=== PATIENT | female | born 1945 | race Hispanic/Latino ===

== ENCOUNTER → 2017-10-21 | Outpatient (CLI) | payer OTHER ==
[~2017-10-21] MED LIST: AEC81 PO; ALEN70TA47 PO; CITA20SO PO; CLOP75TA14 PO; DOXY100C2 PO; OMEP20TA25 PO; SIMV20TA6 PO; TOPI25TA48 PO
== END | disposition home or self-care (01) ==
LOC: RAH 10:25
PROVIDERS: ATTEND Internal Medicine
DX: I82.401 Acute embolism and thrombosis of unspecified deep veins of right lower extremity (principal); R60.0 Localized edema
CPT/HCPCS: 93971

== ENCOUNTER → 2018-01-12 | Outpatient (CLI) | payer OTHER ==
[2018-01-12 10:28] LABS: BASOPHILS % (AUTO) 0.5 % (0.0-5.0); EOSINOPHILS % (AUTO) 3.8 % (0.0-8.0); HEMATOCRIT 43.3 % (36-48); LYMPHOCYTES % (AUTO) 22.6 % (21.0-51.0); MEAN CORPUSCULAR HGB CONC 34.1 g/dL (32.0-36.0); MEAN CORPUSCULAR VOLUME 85.2 fL (79-99); MONOCYTES % (AUTO) 6.3 % (3.0-13.0); NEUTROPHILS % (AUTO) 66.8 % (40.0-77.0); PLATELET COUNT (AUTO) 271 K/uL (130-400); RED BLOOD CELL COUNT(AUTO) 5.08 MIL/uL (4.00-5.50); RED CELL DISTRIBUTION WIDTH 14.1 % (11.0-15.5); WHITE BLOOD COUNT (AUTO) 7.6 K/uL (4.8-10.8)
[2018-01-12 10:50] LABS: HEMOGLOBIN A1C 5.9 % (4.0-6.0)
[2018-01-12 10:52] LABS: ALBUMIN 3.4 g/dL (3.5-5.0); BILIRUBIN,TOTAL 0.4 mg/dL (0.2-1.0); CREATININE 1.1 mg/dL (0.5-1.5); THYROID STIMULATING HORMONE 2.49 uIU/mL (0.36-3.74); TOTAL PROTEIN, SERUM 7.5 g/dL (6.0-8.3)
== END | disposition home or self-care (01) ==
LOC: RAH 09:54
PROVIDERS: ATTEND Internal Medicine
DX: M17.11 Unilateral primary osteoarthritis, right knee (principal); R73.01 Impaired fasting glucose; E78.4 Other hyperlipidemia
CPT/HCPCS: 36415; 73562; 80053; 80061; 83036; 84439; 84443; 84481; 85025

== ENCOUNTER → 2019-04-14 | Outpatient (CLI) | payer OTHER ==
[~2019-04-14] MED LIST changes: +ALEN70TA10 PO; -ALEN70TA47 PO; -CITA20SO PO; +CITA20SO2 PO
== END | disposition home or self-care (01) ==
LOC: SHCH 10:37
PROVIDERS: ATTEND Internal Medicine Cardiovascular Disease
DX: I31.3 Pericardial effusion (noninflammatory) (principal)
CPT/HCPCS: 93306

== ENCOUNTER → 2019-05-14 | Outpatient (CLI) | payer OTHER ==
--- NOTE | 2019-04-26 12:52 | NUR ---
PT WAS A NO SHOW FOR THIS DATE OF SERVICE
[~2019-05-14] VITALS: Ht 157.5 cm; Wt 83.5 kg
[~2019-05-14] MED LIST changes: +REGADENOSON 0.4 MG/5 ML PF SYG IVP SCH; +SIMV-43 PO; -SIMV20TA6 PO
== END | disposition home or self-care (01) ==
LOC: SHCH 08:04
PROVIDERS: ATTEND Internal Medicine Cardiovascular Disease
DX: R55 Syncope and collapse (principal)
CPT/HCPCS: 78452; 93017; 96374; A9500 ×2; J2785

== ENCOUNTER → 2019-06-03 | Outpatient (CLI) | payer OTHER ==
[~2019-06-03] MED LIST changes: -REGADENOSON 0.4 MG/5 ML PF SYG IVP SCH
--- NOTE | 2019-06-03 10:30 | NUR ---
MBSS COMPLETED. -S/S OF ASPIRATION. RECOMMEND MECHANICAL SOFT/GROUND, THIN LIQUIDS, PILLS WHOLE WITH LIQUIDS. RECOMMENDATIONS: 1. GI CONSULT 2. SKILLED SPEECH THERAPY 2-3XWK TARGETING OROPHARYNGEAL DYSPHAGIA. Addendum: 06/03/19 at 1402 by YANICK LIN, SPT ST Amended: Links added.
== END | disposition home or self-care (01) ==
LOC: RAH 08:29
PROVIDERS: ATTEND Internal Medicine
DX: R13.13 Dysphagia, pharyngeal phase (principal); G81.91 Hemiplegia, unspecified affecting right dominant side; G45.9 Transient cerebral ischemic attack, unspecified; Z90.710 Acquired absence of both cervix and uterus; Z86.73 Personal history of transient ischemic attack (TIA), and cerebral infarction without residual deficits
CPT/HCPCS: 74230; 92611

== ENCOUNTER → 2019-10-13 | Outpatient (CLI) | payer OTHER | END | disposition home or self-care (01) | LOC: RAH 10:26 | PROVIDERS: ATTEND Internal Medicine Cardiovascular Disease | DX: Z13.6 Encounter for screening for cardiovascular disorders (principal) | CPT/HCPCS: 75571 ==

== ENCOUNTER → 2020-04-27 | Outpatient (CLI) | payer OTHER ==
[~2020-04-27] MED LIST changes: -ALEN70TA10 PO; +ALEN70TA69 PO
== END | disposition home or self-care (01) ==
LOC: RAH 11:45
PROVIDERS: ATTEND Internal Medicine
DX: M17.11 Unilateral primary osteoarthritis, right knee (principal); F41.1 Generalized anxiety disorder; M25.561 Pain in right knee
CPT/HCPCS: 73564

== ENCOUNTER → 2023-04-22 | Outpatient (CLI) | payer OTHER ==
[~2023-04-22] MED LIST changes: -ALEN70TA69 PO; +ALEN70TA80 PO; +CLOP-31 PO; -CLOP75TA14 PO; -DOXY100C2 PO; +DOXY100C5 PO; +OMEP20TA20 PO; -OMEP20TA25 PO
[2023-04-22 12:29] LABS: CREATININE 1.1 mg/dL (0.5-1.5); POTASSIUM 4.3 mmol/L (3.5-5.1)
== END | disposition home or self-care (01) ==
LOC: LAB 09:43
PROVIDERS: ATTEND Student in an Organized Health Care Education/Training Program
DX: R07.9 Chest pain, unspecified (principal)
CPT/HCPCS: 36415; 80048

== ENCOUNTER → 2023-05-09 | Outpatient (CLI) | payer OTHER ==
[~2023-05-09] MED LIST changes: +IOHEXOL 350 MG/ML 100ML INFUS..BTL IV ONE
== END | disposition home or self-care (01) ==
LOC: RAH 08:57
PROVIDERS: ATTEND Student in an Organized Health Care Education/Training Program
DX: I51.7 Cardiomegaly (principal); R07.9 Chest pain, unspecified; J84.10 Pulmonary fibrosis, unspecified; K44.9 Diaphragmatic hernia without obstruction or gangrene; R91.8 Other nonspecific abnormal finding of lung field; R06.02 Shortness of breath; M47.815 Spondylosis without myelopathy or radiculopathy, thoracolumbar region
CPT/HCPCS: 75574; Q9967

== ENCOUNTER → 2023-05-27 | Outpatient (CLI) | payer OTHER ==
[~2023-05-27] MED LIST changes: -IOHEXOL 350 MG/ML 100ML INFUS..BTL IV ONE
== END | disposition home or self-care (01) ==
LOC: SHCH 14:20
PROVIDERS: ATTEND Student in an Organized Health Care Education/Training Program
DX: I11.9 Hypertensive heart disease without heart failure (principal); R07.9 Chest pain, unspecified; R06.02 Shortness of breath; E78.5 Hyperlipidemia, unspecified
CPT/HCPCS: 93306

== ENCOUNTER → 2024-04-12 | Outpatient (CLI) | payer OTHER | END | disposition home or self-care (01) | LOC: RAH 13:08 | PROVIDERS: ATTEND Internal Medicine | DX: J98.4 Other disorders of lung (principal); R06.09 Other forms of dyspnea | CPT/HCPCS: 71250 ==

== ENCOUNTER 2024-11-04 10:36 | Observation (INO) | payer OTHER ==
[~2024-11-04] VITALS: Ht 157.5 cm; Wt 80.1 kg
[~2024-11-04 10:36] MED LIST changes: +TOPI-257 PO; -TOPI25TA48 PO
--- NOTE | 2024-11-04 11:31 | ERN ---
General Chief Complaint: Abdominal Pain Stated Complaint: DARK STOOL,ABDOMINAL PAIN,NAUSEA,VOMITING Time Seen by MD: 10:45 Source: patient History of Present Illness Initial Comments Patient is a 79-year-old female coming in with complaints of diarrhea. Patient states that she has had diarrhea for four weeks progressively getting worse two weeks ago she noticed the diarrheal episodes accompanied with dark color of stools as well. She was seen by her primary care physician and sent in for further evaluation due to the concerns of the black stool presenting with the diarrhea. Allergies: Coded Allergies: No Known Allergies (Verified Allergy, 01/28/13) Home Meds Active Scripts Doxycycline Hyclate (Doxycycline Hyclate) 100 Mg Capsule, 100 MG PO BID, #10 CAP 0 Refills Prov:Shirley GALARZA II, MD 02/12/16 Reported Medications Alendronate Sodium (Alendronate Sodium) 70 Mg Tablet, 70 MG PO WEEKLY(FRI), TAB 02/12/16 Omeprazole (Omeprazole) 20 Mg Tablet.dr, 20 MG PO DAILY, TAB 02/12/16 Topiramate (Topiramate) 25 Mg Tablet, 25 MG PO DAILY, TAB 02/12/16 Citalopram Hydrobromide (Citalopram HBr) 20 Mg/10 Ml Solution, 20 MG PO DAILY, ML 02/12/16 Simvastatin (Simvastatin) 20 Mg Tablet, 20 MG PO HS, TAB 02/12/16 Clopidogrel Bisulfate (Plavix) 75 Mg Tablet, 75 MG PO DAILY, TAB 02/12/16 Aspirin (ASPIRIN 81 MG ECTAB) 81 Mg Ectab, 81 MG PO DAILY, TAB.EC 02/12/16 Past Medical History Past Medical History: High Cholesterol, Hypertension Past Surgical History: Other Results Laboratory and Microbiology Lab and Micro Result Laboratory Tests Test 11/04/24 11:26 White Blood Count 5.9 K/uL (4.8-10.8) Red Blood Count 5.31 MIL/uL (4.00-5.50) Hemoglobin 14.3 g/dL (12.0-16.0) Hematocrit 45.9 % (36-48) Mean Corpuscular Volume 86.4 fL (79-99) Mean Corpuscular Hemoglobin 26.9 pg (27.0-33.0) L Mean Corpuscular Hemoglobin Concent 31.2 g/dL (32.0-36.0) L Red Cell Distribution Width 15.4 % (11.0-15.5) Platelet Count 224 K/uL (130-400) Mean Platelet Volume 9.3 fL (7.5-10.5) Immature Granulocyte % (Auto) 0.3 % (0-1) Neutrophils (%) (Auto) 56.2 % (40.0-77.0) Lymphocytes (%) (Auto) 31.1 % (21.0-51.0) Monocytes (%) (Auto) 6.5 % (3.0-13.0) Eosinophils (%) (Auto) 5.4 % (0.0-8.0) Basophils (%) (Auto) 0.5 % (0.0-5.0) Neutrophils # (Auto) 3.3 K/uL (1.8-7.7) Lymphocytes # (Auto) 1.8 K/uL (1.0-4.8) Monocytes # (Auto) 0.4 K/uL (0.1-1.0) Eosinophils # (Auto) 0.32 K/uL (0.00-0.70) Basophils # (Auto) 0.03 K/uL (0.00-0.20) Absolute Immature Granulocyte (auto 0.02 K/uL (0-1) Nucleated Red Blood Cells 0.0 % (0.0-0.19) Sodium Level 136 mmol/L (136-145) Potassium Level 4.1 mmol/L (3.5-5.1) Chloride Level 104 mmol/L (101-111) Carbon Dioxide Level 25 mmol/L (21-32) Blood Urea Nitrogen 5 mg/dL (7-18) L Creatinine 1.0 mg/dL (0.5-1.0) Glomerular Filtration Rate Calc 57 mL/min (>90) Random Glucose 89 mg/dL (70-105) Total Calcium 8.5 mg/dL (8.5-10.1) Total Bilirubin 0.6 mg/dL (0.2-1.0) Aspartate Amino Transf (AST/SGOT) 43 U/L (10-37) H Alanine Aminotransferase (ALT/SGPT) 29 U/L (12-78) Alkaline Phosphatase 120 U/L (50-136) Total Creatine Kinase 106 U/L (21-232) Troponin I High Sensitivity 7 ng/L (4-50) Total Protein 7.9 g/dL (6.0-8.3) Albumin 3.2 g/dL (3.5-5.0) L Lipase 41 U/L (16-77) Labs Reviewed?: Yes EKG/XRAY/US/CT/MRI EKG Comment 11/04/2024 time 10:55 a.m. Ventricular rate 52 Sinus rhythm [place] [address] wave elevation or depression CT Scan Comment [facility] [address] [place] [address] IMAGING REPORT Signed PATIENT: LEI KHOURY MR#: [id number] : 1945 SEX: F AGE: 79 LOCATION: [facility] ORDER 1050 STATUS: REG ER REPORT#: [id number] SERVICE 1049 REASON: ABD PAIN ORDERING PHYSICIAN: DEANDRE SNOWDEN MD PROCEDURE: ABD PEL WO - CT ABDOMEN/PELVIS W/O CONTRAST CT ABDOMEN/PELVIS W/O CONTRAST HISTORY: Abdominal pain COMPARISON: None TECHNIQUE: Multiple sequential axial images of the abdomen and pelvis were obtained from the dome of the diaphragm through symphysis pubis. Patient was not given contrast through intravenous route. Oral contrast was not given. FINDINGS: No pleural effusion is seen bilaterally. There are interstitial fibrosis with bronchiectasis. Degenerative changes of the thoracolumbar spine are present. The heart is borderline enlarged. Gallbladder is distended. The liver, spleen, adrenal glands and pancreas are unremarkable. There is no evidence of hydronephrosis bilaterally. No evidence of renal stone is seen. Fecal material is seen in the colon. There is diverticulosis. There are normal size retroperitoneal and mesenteric lymph nodes. No ascites is seen. No CT evidence of acute appendicitis is seen. Uterus is not seen. Pelvic sidewalls are symmetric bilaterally. Bladder is poorly distended. IMPRESSION: 1. Diverticulosis. Fecal material is seen in the colon. Mild bilateral lower lung pulmonary infiltrates. There are interstitial fibrosis with bronchiectasis. CT was performed with one or more following dose reduction techniques: automated exposure control, adjustment of the mA and kv according to patient's size, or use of a iterative reconstruction technique. DICTATED BY: MARIANO QUINTERO MD DATE: 11/04/241223 ELECTRONICALLY SIGNED BY: MARIANO QUINTERO MD DATE: 11/04/248 [facility] MDM: Differential diagnosis: Abdominal pain, gastroenteritis, diarrhea, GI bleed, diverticulosis Rationale: Tests considered and ordered secondary to shared decision making include: Previous outside records reviewed: Old ER visits. Risk of complication and/or morbidity or mortality of patient management: None Patient is a 79-year-old female coming in to be evaluated for abdominal discomfort. Patient states that she was had diarrhea and black stools. Patient was sent by PCP for further evaluation. Patient will be admitted under the care of hospitalist group for ongoing management. ED Course Orders Procedure Category Date Status Time Cbc With Differential LAB 11/04/24 Complete 10:49 Comprehensive LAB 11/04/24 Complete Metabolic Panel 10:49 Troponin I High LAB 11/04/24 Complete Sensitivity 10:49 Urinalysis Profile LAB 11/04/24 In Process 10:49 12 Lead Ekg Tracing- EKG 11/04/24 Complete Technical 10:49 Lactated Ringers PHA 11/04/24 Complete 1000ml (Lactated 11:00 Ondansetron 4mg Inj PHA 11/04/24 Complete (Zofran 4mg Inj) 11:00 Pantoprazole 40mg Inj PHA 11/04/24 Complete (Protonix 40mg Inj 11:00 Creatine Kinase, Total LAB 11/04/24 Complete 10:49 Ct Abdomen/Pelvis W/O CT 11/04/24 Resulted Contrast 10:49 Lipase LAB 11/04/24 Complete 10:49 Occult Blood Stool LAB 11/04/24 Logged Single Only 10:49 Current Medications Medications (Trade) Dose Ordered Sig/Qing Route PRN Reason Start Time Stop Time Status Last Admin Dose Admin Lactated Ringer's 1,000 ml @ 0 mls/hr ONCE ONCE IV 11/04/24 11:00 11/04/24 11:01 DC 11/04/24 11:51 Ondansetron HCl (zoFRAN 4MG INJ) 4 mg ONCE ONCE IVP 11/04/24 11:00 11/04/24 11:01 DC 11/04/24 11:51 Pantoprazole Sodium (PROTonix 40MG INJ) 40 mg ONCE ONCE IVP 11/04/24 11:00 11/04/24 11:01 DC 11/04/24 11:51 Vital Signs Date Time Temp Pulse Resp B/P (MAP) Pulse Ox O2 Delivery O2 Flow Rate FiO2 11/04/24 11:31 52 18 117/46 98 Room Air* 0 21 11/04/24 10:40 97.5 61 20 123/59 96 0 DX & DISP Disposition: Inpatient Decision to Admit Time: 13:03 Departure Impression: Primary Impression: GI bleed Additional Impressions: Diarrhea, Diverticulosis Condition: Stable Referrals: LIDIA VELA MD (PCP) DEANDRE SNOWDEN MD Nov 04, 2024 11:31
[2024-11-04 11:37] LABS: BASOPHILS # (AUTO) 0.03 K/uL (0.00-0.20); BASOPHILS % (AUTO) 0.5 % (0.0-5.0); EOSINOPHILS # (AUTO) 0.32 K/uL (0.00-0.70); EOSINOPHILS % (AUTO) 5.4 % (0.0-8.0); HEMATOCRIT 45.9 % (36-48); IMMATURE GRANULOCYTE ABSOLUTE 0.02 K/uL (0-1); LYMPHOCYTES # (AUTO) 1.8 K/uL (1.0-4.8); LYMPHOCYTES % (AUTO) 31.1 % (21.0-51.0); MEAN CORPUSCULAR HEMOGLOBIN 26.9 pg (27.0-33.0); MEAN CORPUSCULAR HGB CONC 31.2 g/dL (32.0-36.0); MEAN CORPUSCULAR VOLUME 86.4 fL (79-99); MONOCYTES # (AUTO) 0.4 K/uL (0.1-1.0); MONOCYTES % (AUTO) 6.5 % (3.0-13.0); NEUTROPHILS # (AUTO) 3.3 K/uL (1.8-7.7); NEUTROPHILS % (AUTO) 56.2 % (40.0-77.0); PLATELET COUNT (AUTO) 224 K/uL (130-400); RED BLOOD CELL COUNT(AUTO) 5.31 MIL/uL (4.00-5.50); RED CELL DISTRIBUTION WIDTH 15.4 % (11.0-15.5); WHITE BLOOD COUNT (AUTO) 5.9 K/uL (4.8-10.8)
[2024-11-04 11:46] LABS: POTASSIUM 4.1 mmol/L (3.5-5.1)
[2024-11-04 11:50] LABS: ALBUMIN 3.2 g/dL (3.5-5.0); BILIRUBIN,TOTAL 0.6 mg/dL (0.2-1.0); TOTAL PROTEIN, SERUM 7.9 g/dL (6.0-8.3)
[2024-11-04] MEDS: LACTATED RINGERS 1000ML 1,000 ML IV ONE (11:51)
[2024-11-04] MEDS: ondanSETRON 4MG INJ IVP ONE (11:51)
[2024-11-04] MEDS: PANTOPrazole 40 MG/VIAL IVP ONE (11:51)
--- NOTE | 2024-11-04 12:00 | NUR ---
PT LEFT FOR CT SCAN
--- NOTE | 2024-11-04 12:28 | HMCIMG ---
CT ABDOMEN/PELVIS W/O CONTRAST HISTORY: Abdominal pain COMPARISON: None TECHNIQUE: Multiple sequential axial images of the abdomen and pelvis were obtained from the dome of the diaphragm through symphysis pubis. Patient was not given contrast through intravenous route. Oral contrast was not given. FINDINGS: No pleural effusion is seen bilaterally. There are interstitial fibrosis with bronchiectasis. Degenerative changes of the thoracolumbar spine are present. The heart is borderline enlarged. Gallbladder is distended. The liver, spleen, adrenal glands and pancreas are unremarkable. There is no evidence of hydronephrosis bilaterally. No evidence of renal stone is seen. Fecal material is seen in the colon. There is diverticulosis. There are normal size retroperitoneal and mesenteric lymph nodes. No ascites is seen. No CT evidence of acute appendicitis is seen. Uterus is not seen. Pelvic sidewalls are symmetric bilaterally. Bladder is poorly distended. IMPRESSION: 1. Diverticulosis. Fecal material is seen in the colon. Mild bilateral lower lung pulmonary infiltrates. There are interstitial fibrosis with bronchiectasis. CT was performed with one or more following dose reduction techniques: automated exposure control, adjustment of the mA and kv according to patient's size, or use of a iterative reconstruction technique.
--- NOTE | 2024-11-04 12:52 | EKG ---
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
[2024-11-04 13:06] LABS: APPEARANCE,URINE CLOUDY (CLEAR); BILIRUBIN,URINE NEGATIVE (NEGATIVE); COLOR,URINE YELLOW (YELLOW); GLUCOSE, URINE (UA) NEGATIVE (NEGATIVE); KETONES,URINE NEGATIVE (NEGATIVE); LEUKOCYTE ESTERASE ,URINE 250 Leu/uL (NEGATIVE); NITRATE,URINE NEGATIVE (NEGATIVE); PROTEIN,URINE NEGATIVE (NEGATIVE); UROBILINOGEN,URINE 0.2 mg/dL (0.2-1.0)
[2024-11-04 13:09] LABS: ADD UA MICROSCOPIC YES
[2024-11-04 13:27] LABS: BACTERIA,URINE RARE /HPF (None Seen); MUCUS,URINE FEW LPF (None Seen); SQUAMOUS EPITHELIAL CELL,UR MANY /HPF (0-2)
[2024-11-04] MEDS ORDERED: ALBUTEROL 0.042% 1.25MG/3ML IH PRN (13:30)
[2024-11-04] MEDS ORDERED: acetaMINOPHEN 500 MG TABLET PO PRN (13:30)
[2024-11-04] MEDS ORDERED: OMEP20CA12 PO (14:03)
[2024-11-04] MEDS ORDERED: ATOR40TA71 PO (14:03)
[2024-11-04] MEDS ORDERED: CITA-107 PO (14:03)
[2024-11-04] MEDS ORDERED: TOPI-258 PO (14:03)
[2024-11-04] MEDS: cefTRIAXone 1G VIAL IVPB SCH (14:07)
[2024-11-04] MEDS: PANTOPrazole 40MG INJ 80 MG in 0.9%NACL 100ML 100 ML IVP SCH (14:08)
[2024-11-04] MEDS: 0.9%NACL 1000ML 1,000 ML IV SCH (14:08)
--- NOTE | 2024-11-04 14:13 | HP ---
[facility] HISTORY AND PHYSICAL Date of Service: Nov 04, 2024 Time of Service: 14:12 HISTORY OF PRESENT ILLNESS: 79-year-old female with past medical history of hyperlipidemia, pulmonary fibrosis who presents to the hospital secondary to diarrhea and melena. The patient has stage for the past one month she has been having loose stools at home. She has been having around 3-4 episodes. She was also noted black stools which started yesterday. She denies any nausea, vomiting. Also complains of generalized abdominal pain. She has a history of pulmonary fibrosis and is being followed outpatient by Dr. Carolina. The he had any fever, chills, chest pain, dysuria. She does get short of breath at rest and with exertion. She denied any hematochezia, hematemesis. Denied any sick contacts, recent travel. Secondary to non improving symptoms. Patient thereafter came to the hospital for further evaluation. Denies being on iron or Pepto-Bismol at home. Labs in the ED were notable for white count of 5.9, hemoglobin was 14.3, platelet count was 224 K, sodium was 136, potassium 4.1, creatinine was 1.0. Patient underwent CT abdomen pelvis which showed diverticulosis. She had mild bilateral lower pulmonary infiltrates concerning for interstitial fibrosis and bronchiectasis REVIEW OF SYSTEMS CONSTITUTIONAL: Denies fevers, chills, or night sweats. No unintentional weight loss reported. NEUROLOGICAL: Denies headache, amaurosis fugax, motor weakness, sensory deficit, vertigo/spinning sensation, gait abnormalities, or tremors. ENT: No hearing loss, otalgia, otorrhea, rhinitis, rhinorrhea, hoarseness, or sore throat. CARDIOVASCULAR: Denies any exertional angina, dyspnea on exertion, orthopnea, paroxysmal nocturnal dyspnea, palpitations, life-threatening arrhythmias, claudication. PULMONARY: Denies any shortness of breath, cough, phlegm/sputum, hemoptysis, pleuritic chest pain. SLEEP: Denies morning headaches, daytime somnolence or napping. Denies difficulty falling asleep, staying asleep, waking from sleep. Denies knowledge of snoring. GASTROINTESTINAL: Positive for melena, abdominal pain, diarrhea. Denied any nausea, vomiting GENITOURINARY: Denies frequency, urgency, nocturia, hematuria or incontinence (Storage/Irritative symptoms.) Low urinary stream, straining to void, urinary intermittency or hesitancy, splitting of the voiding stream, terminal dribbling. ENDOCRINOLOGIC: Denies polyuria, polydipsia, polyphagia or heat/cold intolerances. HEMATOLOGIC: Denies thrombophilia/previous clots, or coagulopathy/bleeding disorders. ONCOLOGIC: Denies personal history of malignancy. DERMATOLOGIC: Denies rashes or pruritus. PSYCHIATRIC: Denies any suicidal or homicidal ideation. Denies hallucinations. PAST MEDICAL HISTORY: hyperlipidemia, pulmonary fibrosis PAST SURGICAL HISTORY: Denied any surgical history PAST SOCIAL HISTORY: Denied any smoking, alcohol, drug use FAMILY HISTORY: Denied any pertinent family history Coded Allergies: No Known Allergies (Verified Allergy, 01/28/13) PHYSICAL EXAM GENERAL APPEARANCE: The patient is awake, alert, and oriented, in no acute cardiopulmonary distress. NEUROLOGICAL: Cranial nerves II-XII grossly intact. Motor is 5/5 in bilateral upper and lower extremities proximal to distal. No sensory deficits. HEENT: Face is symmetric. Pupils are equal and reactive. Extraocular movements are intact. NECK: Supple. No JVD. No thyromegaly. No submental, submandibular, pre- /postauricular, occipital or supraclavicular lymphadenopathy. CHEST: Normal chest expansion. No Telemetry. LUNGS: crackles present bilaterally CARDIOVASCULAR: Regular. S1 and S2 normal. No appreciable rubs, murmurs or gallops. ABDOMEN: Soft. Patient is tenderness to palpation which is located and right lower quadrant and left lower quadrant. No guarding, no rebound present. : Deferred. No [place]. EXTREMITIES: Non-edematous and not cyanotic. No clubbing. Good capillary refill. SKIN: No skin breakdown. Vital Sign (Last 24 Hours) 11/04/24 11/04/24 10:40 11:31 Temp 97.5 Pulse 52 Resp 18 B/P (MAP) 117/46 Pulse Ox 98 O2 Delivery Room Air* O2 Flow Rate 0 FiO2 21 LABS: Laboratory: Test 11/04/24 13:42 11/04/24 12:51 11/04/24 11:26 Range/Units Stool Occult Blood NEGATIVE NEGATIVE Urine Color YELLOW YELLOW Urine Appearance CLOUDY H CLEAR Urine pH 6.0 5.0-8.0 Urine Specific [place] 1.016 1.001-1.031 Urine Protein NEGATIVE NEGATIVE mg/dL Urine Glucose (UA) NEGATIVE NEGATIVE mg/dL Urine Ketones NEGATIVE NEGATIVE mg/dL Urine Occult Blood +- (TRACE) H NEGATIVE Urine Nitrate NEGATIVE NEGATIVE Urine Bilirubin NEGATIVE NEGATIVE mg/dL Urine Urobilinogen 0.2 0.2-1.0 mg/dL Urine Leukocyte Esterase 250 H NEGATIVE Lisha/uL Urine RBC 2-5 H 0-1 /HPF Urine WBC 2-5 H 0-1 /HPF Urine Squamous Epithelial Cells MANY 0-2 /HPF Urine Bacteria RARE None Seen /HPF White Blood Count 5.9 4.8-10.8 K/uL Red Blood Count 5.31 4.00-5.50 MIL/uL Hemoglobin 14.3 12.0-16.0 g/dL Hematocrit 45.9 36-48 % Mean Corpuscular Volume 86.4 79-99 fL Mean Corpuscular Hemoglobin 26.9 L 27.0-33.0 pg Mean Corpuscular Hemoglobin Concent 31.2 L 32.0-36.0 g/dL Red Cell Distribution Width 15.4 11.0-15.5 % Platelet Count 224 130-400 K/uL Mean Platelet Volume 9.3 7.5-10.5 fL Immature Granulocyte % (Auto) 0.3 0-1 % Neutrophils (%) (Auto) 56.2 40.0-77.0 % Lymphocytes (%) (Auto) 31.1 21.0-51.0 % Monocytes (%) (Auto) 6.5 3.0-13.0 % Eosinophils (%) (Auto) 5.4 0.0-8.0 % Basophils (%) (Auto) 0.5 0.0-5.0 % Neutrophils # (Auto) 3.3 1.8-7.7 K/uL Lymphocytes # (Auto) 1.8 1.0-4.8 K/uL Monocytes # (Auto) 0.4 0.1-1.0 K/uL Eosinophils # (Auto) 0.32 0.00-0.70 K/uL Basophils # (Auto) 0.03 0.00-0.20 K/uL Absolute Immature Granulocyte (auto 0.02 0-1 K/uL Nucleated Red Blood Cells 0.0 0.0-0.19 % Sodium Level 136 136-145 mmol/L Potassium Level 4.1 3.5-5.1 mmol/L Chloride Level 104 101-111 mmol/L Carbon Dioxide Level 25 21-32 mmol/L Blood Urea Nitrogen 5 L 7-18 mg/dL Creatinine 1.0 0.5-1.0 mg/dL Glomerular Filtration Rate Calc 57 >90 mL/min Random Glucose 89 70-105 mg/dL Total Calcium 8.5 8.5-10.1 mg/dL Total Bilirubin 0.6 0.2-1.0 mg/dL Aspartate Amino Transf (AST/SGOT) 43 H 10-37 U/L Alanine Aminotransferase (ALT/SGPT) 29 12-78 U/L Alkaline Phosphatase 120 50-136 U/L Total Creatine Kinase 106 21-232 U/L Troponin I High Sensitivity 7 4-50 ng/L Total Protein 7.9 6.0-8.3 g/dL Albumin 3.2 L 3.5-5.0 g/dL Lipase 41 16-77 U/L Current Medications Medications (Trade) Dose Ordered Sig/Qing Route PRN Reason Start Time Stop Time Status Last Admin Dose Admin Acetaminophen (TYLenol 500MG TAB) 500 mg Q6H PRN PO MILD PAIN (1-3) 11/04/24 13:30 12/04/24 13:29 Albuterol Sulfate (Proventil 0.042% 1.25mg/ 3ml) 1.25 [id number] PRN IH WHEEZING/ sob 11/04/24 13:30 12/04/24 13:29 Ceftriaxone Sodium (ROCEphine 1G INJ) 1 gm Q24H IVPB 11/04/24 13:30 11/14/24 13:29 11/04/24 14:07 1 GM Pantoprazole Sodium 80 mg/ Sodium Chloride 100 ml @ 10 mls/hr Q10H IVP 11/04/24 13:30 12/04/24 13:29 11/04/24 14:08 10 MLS/HR Sodium Chloride 1,000 ml @ 75 mls/hr [id number] IV 11/04/24 13:30 12/04/24 13:29 11/04/24 14:08 75 MLS/HR DIAGNOSTICS / RADIOLOGY: [ ] ASSESSMENT: Melena POA Non improving diarrhea POA differential infectious sources inflammatory Pulmonary fibrosis associated shortness of breath Hyperlipidemia Obesity BMI 30.5 UTI rule out PLAN: - patient to be admitted to medical-surgical unit with telemetry -in reference to melena. We will check a fecal occult blood. Check H&H q.6 hours. Patient will be started on Protonix drip. We will request consultation with GI. -in reference to diarrhea. Obtain a stool PCR panel. We will follow up on GI recommendations. -reference to pulmonary fibrosis. The patient will continue on her home medications. We will request pulmonology consultation. Continue with albuterol q.4 RPR -obtain home medication she will be reconciled once available - Further ordered per hospitalization course Advanced Care Planning Which of the following were discussed: Hospice care: Yes __ No _x_ Therapeutic options: Yes __ No __ Advance directives: Yes __ No __ Other discussions: Discussed with who?: Patient (Patient, family or surrogates) Voluntary nature of this service was explained to the patient? Yes _x_ No __ Amount of time spent: 25 minutes CASTRO Rondon MD, MD Nov 04, 2024 14:12
[2024-11-04 14:46] LABS: INR 1.03 (0.85-1.15); PROTHROMBIN TIME 10.9 SEC (9.6-11.6)
[2024-11-04 14:47] LABS: PARTIAL THROMBOPLASTIN TIME 28.6 SEC (26.3-35.5)
[2024-11-04] MEDS ORDERED: ondanSETRON 4MG INJ IVP PRN (15:30)
--- NOTE | 2024-11-04 15:36 | HMCIMG ---
CHEST 1VW HISTORY: Ovary fibrosis COMPARISON: None FINDINGS: A frontal projection of the chest was obtained. Mild bilateral pulmonary infiltrates are seen may be related to mild pulmonary vascular congestion with possible superimposed pneumonitis. The heart is borderline enlarged. Degenerative changes are seen. No evidence of aortic calcification is seen. IMPRESSION: 1. Mild bilateral pulmonary infiltrates are seen may be related to mild pulmonary vascular congestion with possible superimposed pneumonitis.
[2024-11-04 15:38] LABS: HEMATOCRIT 41.5 % (36-48)
[2024-11-04 15:45] VITALS: BP 122/50; PULSE 68; RESP 18; TEMP 97.6
--- NOTE | 2024-11-04 18:05 | CONS ---
GASTROENTEROLOGY CONSULTATION NOTE Date of Consultation: Nov 04, 2024 Time of Consultation: 18:05 History of Present Illness: This is a 79-year-old female with past medical history of hyperlipidemia, pulmonary fibrosis who presented due to diarrhea and melena. She has been having abdominal pain and we were consulted for this reason. Imaging revealing diverticulosis. Review of Systems: CONSTITUTIONAL: No malaise or change in sensation of wellbeing. ENMT: No rhinorrhea, otorrhea, sinus pain, ear ache. CARDIOVASCULAR: No angina, palpitations, orthopnea or paroxysmal dyspnea. RESPIRATORY: No SOB. GASTROINTESTINAL: No abdominal pain, nausea, vomiting, diarrhea, hematemesis, melena or change in the patient's habitual bowel movements consistency/number. GENITOURINARY: No dysuria, hematuria or change in bladder continence. MUSCULOSKELETAL: No new muscle pain or decrease in muscular strength. No new joint swelling, redness or tenderness. SKIN: No new rash. Past Medical History: [ ] Past Surgical History: [ ] Past Social History: [ ] Family History: [ ] Coded Allergies: No Known Allergies (Verified Allergy, 01/28/13) Physical Exam: GEN: Awake, alert, oriented in person, time and place, and in no acute distress. HEENT: No sinus tenderness. Tympanic membranes were not examined. No rhinorrhea. Oral pharyngeal mucosa is pink, moist and within normal limits. Neck is supple with no cervical lymphadenopathy, thyromegaly or JVD. CHEST: Inspection, palpation and percussion of the chest were unremarkable. Lung auscultation revealed normal breath sounds bilaterally. CARDIAC: PMI is within normal limits. Heart sounds are regular. Normal S1, S2. No gallop or murmur. ABD: Soft, non-tender and not distended. No peritoneal signs on palpation. No organomegaly. Normal bowel sounds. EXT: No cyanosis or clubbing. No edema. SKIN: Intact. No rashes. JOINTS: No evidence of synovitis or acute arthritis. NEURO: Alert and oriented to name, place and person. Cranial nerve examination is unremarkable. No focal motor deficits. Normal speech. Gait is normal. Strength is normal. Vital Sign (Last 24 Hours) 11/04/24 11/04/24 11:31 15:45 Temp 97.5 Pulse 68 Resp 18 B/P (MAP) 122/50 Pulse Ox 95 O2 Delivery Room Air O2 Flow Rate 0 FiO2 21 Laboratory: [ ] Laboratory: Test 11/04/24 14:16 11/04/24 13:42 11/04/24 12:51 11/04/24 11:26 Range/Units Hemoglobin 13.2 12.0-16.0 g/dL Hematocrit 41.5 36-48 % Prothrombin Time 10.9 9.6-11.6 SEC Prothromb Time International Ratio 1.03 0.85-1.15 Activated Partial Thromboplast Time 28.6 26.3-35.5 SEC Lactic Acid Level 1.2 0.8-2.5 mmol/L Stool Occult Blood NEGATIVE NEGATIVE Urine Color YELLOW YELLOW Urine Appearance CLOUDY H CLEAR Urine pH 6.0 5.0-8.0 Urine Specific [place] 1.016 1.001-1.031 Urine Protein NEGATIVE NEGATIVE mg/dL Urine Glucose (UA) NEGATIVE NEGATIVE mg/dL Urine Ketones NEGATIVE NEGATIVE mg/dL Urine Occult Blood +- (TRACE) H NEGATIVE Urine Nitrate NEGATIVE NEGATIVE Urine Bilirubin NEGATIVE NEGATIVE mg/dL Urine Urobilinogen 0.2 0.2-1.0 mg/dL Urine Leukocyte Esterase 250 H NEGATIVE Lisha/uL Urine RBC 2-5 H 0-1 /HPF Urine WBC 2-5 H 0-1 /HPF Urine Squamous Epithelial Cells MANY 0-2 /HPF Urine Bacteria RARE None Seen /HPF White Blood Count 5.9 4.8-10.8 K/uL Red Blood Count 5.31 4.00-5.50 MIL/uL Mean Corpuscular Volume 86.4 79-99 fL Mean Corpuscular Hemoglobin 26.9 L 27.0-33.0 pg Mean Corpuscular Hemoglobin Concent 31.2 L 32.0-36.0 g/dL Red Cell Distribution Width 15.4 11.0-15.5 % Platelet Count 224 130-400 K/uL Mean Platelet Volume 9.3 7.5-10.5 fL Immature Granulocyte % (Auto) 0.3 0-1 % Neutrophils (%) (Auto) 56.2 40.0-77.0 % Lymphocytes (%) (Auto) 31.1 21.0-51.0 % Monocytes (%) (Auto) 6.5 3.0-13.0 % Eosinophils (%) (Auto) 5.4 0.0-8.0 % Basophils (%) (Auto) 0.5 0.0-5.0 % Neutrophils # (Auto) 3.3 1.8-7.7 K/uL Lymphocytes # (Auto) 1.8 1.0-4.8 K/uL Monocytes # (Auto) 0.4 0.1-1.0 K/uL Eosinophils # (Auto) 0.32 0.00-0.70 K/uL Basophils # (Auto) 0.03 0.00-0.20 K/uL Absolute Immature Granulocyte (auto 0.02 0-1 K/uL Nucleated Red Blood Cells 0.0 0.0-0.19 % Sodium Level 136 136-145 mmol/L Potassium Level 4.1 3.5-5.1 mmol/L Chloride Level 104 101-111 mmol/L Carbon Dioxide Level 25 21-32 mmol/L Blood Urea Nitrogen 5 L 7-18 mg/dL Creatinine 1.0 0.5-1.0 mg/dL Glomerular Filtration Rate Calc 57 >90 mL/min Random Glucose 89 70-105 mg/dL Total Calcium 8.5 8.5-10.1 mg/dL Total Bilirubin 0.6 0.2-1.0 mg/dL Aspartate Amino Transf (AST/SGOT) 43 H 10-37 U/L Alanine Aminotransferase (ALT/SGPT) 29 12-78 U/L Alkaline Phosphatase 120 50-136 U/L Total Creatine Kinase 106 21-232 U/L Troponin I High Sensitivity 7 4-50 ng/L Total Protein 7.9 6.0-8.3 g/dL Albumin 3.2 L 3.5-5.0 g/dL Lipase 41 16-77 U/L Current Medications Medications (Trade) Dose Ordered Sig/Qing Route PRN Reason Start Time Stop Time Status Last Admin Dose Admin Acetaminophen (TYLenol 500MG TAB) 500 mg Q6H PRN PO MILD PAIN (1-3) 11/04/24 13:30 12/04/24 13:29 Albuterol Sulfate (Proventil 0.042% 1.25mg/ 3ml) 1.25 [id number] PRN IH WHEEZING/ sob 11/04/24 13:30 12/04/24 13:29 Atorvastatin Calcium (LIPItor 40MG) 40 mg DAILY PO 11/05/24 09:00 12/05/24 08:59 Ceftriaxone Sodium (ROCEphine 1G INJ) 1 gm Q24H IVPB 11/04/24 13:30 11/14/24 13:29 11/04/24 14:07 1 GM Citalopram Hydrobromide (CeleXA 20MG TAB) 20 mg DAILY PO 11/05/24 09:00 12/05/24 08:59 Ondansetron HCl (zoFRAN 4MG INJ) 4 mg Q6H PRN IVP NAUSEA/VOMITING 11/04/24 15:30 12/04/24 15:29 Pantoprazole Sodium 80 mg/ Sodium Chloride 100 ml @ 10 mls/hr Q10H IVP 11/04/24 13:30 12/04/24 13:29 11/04/24 14:08 10 MLS/HR Sodium Chloride 1,000 ml @ 75 mls/hr [id number] IV 11/04/24 13:30 12/04/24 13:29 11/04/24 14:08 75 MLS/HR Topiramate (TopaMAX) 100 mg DAILY PO 11/05/24 09:00 12/05/24 08:59 Diagnostics / Radiology: [COPY/PASTE HERE IF NO REPORTS PLEASE DELETE SECTION] Assessment: Marian HLD Pulmonary fibrosis Plan: EGD in [facility] [employer]IVIT[employer] DIRECTOR Nov 04, 2024 18:05
--- NOTE | 2024-11-04 19:42 | CONS ---
[facility] CONSULTATION NOTE Date Patient Seen: Nov 04, 2024 Time of Visit: 19:42 Supervising Physician: Dr. Joseph Don Reason for Consultation: SOB 2/2 pulmonary fibrosis Primary Care Physician: [ ] Outpatient Specialists: [ ] Inpatient Consults: [ ] PROBLEM LIST: Melena POA Non improving diarrhea POA differential infectious sources inflammatory Pulmonary fibrosis associated shortness of breath Hyperlipidemia Obesity BMI 30.5 UTI rule out HPI: Patient was a 79-year-old female with a past medical history significant for hyperlipidemia and pulmonary fibrosis who was admitted by the primary team for episodes of melena and loose stools at home. Patient is currently pending Urology since unit on GI bleed workup. Who recommended a trial and if they are still up a very as well as bike with patient's history taking she identified that she does experience shortness of breath on exertion at home for which the pulmonary team was consulted. On evaluation in the emergency department patient he is on room air at this time, denies any shortness of breath or chest pain at this time. CT abdomen showed lower lobes with possible pulmonary infiltrates, patient was started on Rocephin by primary team, we will continue to follow the patient pending PFTs in the morning and further evaluation of the state of her fibrosis, with possible evaluation upon discharge for home O2 needs. PAST MEDICAL HX: see above PAST SURGICAL HX: noncontributory SOCIAL HISTORY: No tobacco, ETOH, or illicit drug use Coded Allergies: No Known Allergies (Verified Allergy, 01/28/13) REVIEW OF SYSTEMS: 12 point ROS reviewed with patient. Pertinent positives mentioned above. Otherwise negative. PHYSICAL EXAM: GENERAL: alert, weak, awake oriented x 3 HEENT: EOMI, Sclera non icteric, moist mucosa NECK: Supple, no JVD, trachea midline LUNGS: Clear breath sounds bilaterally. No wheezes HEART: Regular rate and rhythm. Normal S1 and S2, without murmurs ABD: Abdomen soft, nontender. Bowel sounds present EXT: No clubbing cyanosis or edema NEURO: Alert and oriented to person, follows commands Vital Signs (last 8hr) Date Time Temp Pulse Resp B/P (MAP) Pulse Ox O2 Delivery O2 Flow Rate FiO2 11/04/24 15:45 97.5 68 18 122/50 95 Room Air LABS: Hematology Labs: Test 11/04/24 14:16 11/04/24 11:26 Range/Units Hemoglobin 13.2 12.0-16.0 g/dL Hematocrit 41.5 36-48 % White Blood Count 5.9 4.8-10.8 K/uL Red Blood Count 5.31 4.00-5.50 MIL/uL Mean Corpuscular Volume 86.4 79-99 fL Mean Corpuscular Hemoglobin 26.9 L 27.0-33.0 pg Mean Corpuscular Hemoglobin Concent 31.2 L 32.0-36.0 g/dL Red Cell Distribution Width 15.4 11.0-15.5 % Platelet Count 224 130-400 K/uL Mean Platelet Volume 9.3 7.5-10.5 fL Immature Granulocyte % (Auto) 0.3 0-1 % Neutrophils (%) (Auto) 56.2 40.0-77.0 % Lymphocytes (%) (Auto) 31.1 21.0-51.0 % Monocytes (%) (Auto) 6.5 3.0-13.0 % Eosinophils (%) (Auto) 5.4 0.0-8.0 % Basophils (%) (Auto) 0.5 0.0-5.0 % Neutrophils # (Auto) 3.3 1.8-7.7 K/uL Lymphocytes # (Auto) 1.8 1.0-4.8 K/uL Monocytes # (Auto) 0.4 0.1-1.0 K/uL Eosinophils # (Auto) 0.32 0.00-0.70 K/uL Basophils # (Auto) 0.03 0.00-0.20 K/uL Absolute Immature Granulocyte (auto 0.02 0-1 K/uL Nucleated Red Blood Cells 0.0 0.0-0.19 % Chemistry Labs: Test 11/04/24 14:16 11/04/24 11:26 Range/Units Lactic Acid Level 1.2 0.8-2.5 mmol/L Sodium Level 136 136-145 mmol/L Potassium Level 4.1 3.5-5.1 mmol/L Chloride Level 104 101-111 mmol/L Carbon Dioxide Level 25 21-32 mmol/L Blood Urea Nitrogen 5 L 7-18 mg/dL Creatinine 1.0 0.5-1.0 mg/dL Glomerular Filtration Rate Calc 57 >90 mL/min Random Glucose 89 70-105 mg/dL Total Calcium 8.5 8.5-10.1 mg/dL Total Bilirubin 0.6 0.2-1.0 mg/dL Aspartate Amino Transf (AST/SGOT) 43 H 10-37 U/L Alanine Aminotransferase (ALT/SGPT) 29 12-78 U/L Alkaline Phosphatase 120 50-136 U/L Total Creatine Kinase 106 21-232 U/L Troponin I High Sensitivity 7 4-50 ng/L Total Protein 7.9 6.0-8.3 g/dL Albumin 3.2 L 3.5-5.0 g/dL Lipase 41 16-77 U/L Coagulation Labs: Test 11/04/24 14:16 Range/Units Prothrombin Time 10.9 9.6-11.6 SEC Prothromb Time International Ratio 1.03 0.85-1.15 Activated Partial Thromboplast Time 28.6 26.3-35.5 SEC DIAGNOSTICS / RADIOLOGY RESULTS: [ ] PLAN NEURO: Minimize central acting medications as possible. Maintain fall precautions, adequate lighting during the day PULMONARY: Supplemental 02 as needed. Maintain aspiration precautions at all times CARDIOVASCULAR: Follow hemodynamics. Vital signs per facility protocol GI & NUTRITION: Continue with nutritional support. Continue stool softeners and laxatives as needed. KIDNEYS & ELECTROLYTES: Strict monitoring of intake, output and overall fluid balance. Avoid nephrotoxic medications to the extent possible. Medications to be dosed according to renal function. Monitor electrolytes and replace as needed ENDOCRINE: Maintain blood glucose between 100-180 at all times. Hypoglycemia protocol in place INFECTIOUS DISEASE: Trend temperature, WBC and procalcitonin level Follow cultures, deescalate antibiotics as soon as possible. Panculture if new onset fever ONCOLOGY/HEMATOLOGY/COAGULATION: Monitor for s/s of bleeding Monitor hemoglobin, coagulation studies as needed SKIN: Pressure ulcer prevention per facility protocol Specialty mattress ORTHO/REHAB: Continue PT/OT Prophylaxis: Continue GI and DVT prophylaxis Code Status: Full Resuscitation Disposition: TBD Other: Total patient care time exceeds 35 minutes excluding all procedures. DAVID VALENCIA Nov 04, 2024 19:42
[2024-11-04 20:00] VITALS: BP 116/50; PULSE 61; RESP 18; TEMP 98
[2024-11-04 21:04] VITALS: O2SAT 98
[2024-11-04 21:10] VITALS: BP 126/53; PULSE 52; RESP 20; TEMP 97.5
[2024-11-05] VITALS (28 sets, daily range): BP systolic 99–137; BP diastolic 50–73; PULSE 51–74; RESP 14–20; TEMP 97–98.4; O2SAT 92–99
[2024-11-05 01:49] LABS: HEMATOCRIT 36.9 % (36-48)
[2024-11-05 06:13] LABS: BASOPHILS # (AUTO) 0.02 K/uL (0.00-0.20); BASOPHILS % (AUTO) 0.3 % (0.0-5.0); EOSINOPHILS # (AUTO) 0.47 K/uL (0.00-0.70); EOSINOPHILS % (AUTO) 7.6 % (0.0-8.0); HEMATOCRIT 38.1 % (36-48); IMMATURE GRANULOCYTE ABSOLUTE 0.03 K/uL (0-1); LYMPHOCYTES # (AUTO) 1.8 K/uL (1.0-4.8); LYMPHOCYTES % (AUTO) 28.7 % (21.0-51.0); MEAN CORPUSCULAR HEMOGLOBIN 27.3 pg (27.0-33.0); MEAN CORPUSCULAR HGB CONC 31.5 g/dL (32.0-36.0); MEAN CORPUSCULAR VOLUME 86.8 fL (79-99); MONOCYTES # (AUTO) 0.5 K/uL (0.1-1.0); MONOCYTES % (AUTO) 7.4 % (3.0-13.0); NEUTROPHILS # (AUTO) 3.5 K/uL (1.8-7.7); NEUTROPHILS % (AUTO) 55.5 % (40.0-77.0); PLATELET COUNT (AUTO) 191 K/uL (130-400); RED BLOOD CELL COUNT(AUTO) 4.39 MIL/uL (4.00-5.50); RED CELL DISTRIBUTION WIDTH 15.3 % (11.0-15.5); WHITE BLOOD COUNT (AUTO) 6.2 K/uL (4.8-10.8)
[2024-11-05 06:20] LABS: CREATININE 0.9 mg/dL (0.5-1.0); POTASSIUM 3.9 mmol/L (3.5-5.1)
[2024-11-05] MEDS: topIRAMate 100 MG TAB PO SCH (08:05)
[2024-11-05] MEDS: citaLOPram 20 MG TABLET PO SCH (08:05)
[2024-11-05] MEDS: atorVAStatin 40 MG TABLET PO SCH (08:05)
[2024-11-05] MEDS ORDERED: COMPOUND IV REFRIGERATED 1 EACH IVSOLN MISC PRN (08:30)
--- NOTE | 2024-11-05 08:52 | NUR ---
OFF UNIT FOR EGD
[2024-11-05] MEDS ORDERED: LIDOCAINE PF 100MG/5ML (2%) SYRINGE 5ML ONE (09:32)
[2024-11-05] MEDS ORDERED: proPOFol 10 MG/ML 20ML VIAL IV ONE (09:32)
[2024-11-05] MEDS ORDERED: CIPR-278 PO (09:57)
[2024-11-05] MEDS ORDERED: AUD NEB (09:58)
[2024-11-05] MEDS ORDERED: LORA-192 PO (10:04)
[2024-11-05] MEDS ORDERED: DOCU100T PO (10:05)
[2024-11-05] MEDS ORDERED: TRAZ-185 PO (10:05)
[2024-11-05] MEDS ORDERED: ASPI-1005 PO (10:07)
[2024-11-05] MEDS ORDERED: LEVO88TA7 PO (10:07)
[2024-11-05] MEDS ORDERED: TAMS-55 PO (10:08)
[2024-11-05] MEDS ORDERED: AMLO-257 PO (10:08)
--- NOTE | 2024-11-05 10:27 | NUR ---
RETURN TO [facility] FROM EGD; NO APPARANT DISTRESS NOTED OR VOICED
--- NOTE | 2024-11-05 14:41 | PN ---
[facility] PROGRESS NOTE Date Patient Seen: Nov 05, 2024 Time of Visit: 14:41 Supervising Physician: Dr. Joseph Don Primary Care Physician: Dr. Kellie Anand Outpatient Specialists: [ ] Inpatient Consults: PROBLEM LIST: Melena POA Non improving diarrhea POA differential infectious sources inflammatory Pulmonary fibrosis associated shortness of breath Hyperlipidemia Obesity BMI 30.5 UTI rule out INTERVAL HISTORY: Patient evaluated again at bedside today, she remains on room air at the time of visit, states that she only used her oxygen while sleeping. 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 Patient has incomplete PFT findings consistent with her pulmonary fibrosis diagnosis. Patient could potentially undergo home O2 evaluation prior to discharge however saturations appear to be fine on room air at this time. 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 REVIEW OF SYSTEMS: 12 point ROS reviewed with patient. Pertinent positives mentioned above. Otherwise negative. PHYSICAL EXAM: GENERAL: alert, weak, awake oriented x 3 HEENT: EOMI, Sclera non icteric, moist mucosa NECK: Supple, no JVD, trachea midline LUNGS: Clear breath sounds bilaterally. No wheezes HEART: Regular rate and rhythm. Normal S1 and S2, without murmurs ABD: Abdomen soft, nontender. Bowel sounds present EXT: No clubbing cyanosis or edema NEURO: Alert and oriented to person, follows commands Vital Signs (last 8hr) Date Time Temp Pulse Resp B/P (MAP) Pulse Ox O2 Delivery O2 Flow Rate FiO2 11/05/24 12:00 60 16 133/65 95 11/05/24 11:44 74 137/59 94 11/05/24 11:43 63 132/71 94 11/05/24 11:43 59 137/72 92 Room Air 11/05/24 11:30 62 16 107/58 95 Room Air 11/05/24 11:00 58 16 134/73 94 Room Air 11/05/24 10:45 61 16 111/68 95 Room Air 11/05/24 10:30 64 16 109/54 92 Room Air 11/05/24 10:16 97.7 61 16 103/65 96 Room Air 11/05/24 10:15 97.0 65 15 113/52 96 Room Air 11/05/24 10:10 64 15 108/53 95 Room Air 11/05/24 10:05 61 14 116/57 96 Room Air 11/05/24 10:00 66 15 112/52 97 Room Air 11/05/24 09:55 64 15 113/54 99 Nonrebreathing Mask 10.0 11/05/24 09:50 65 14 106/51 99 Nonrebreathing Mask 10.0 11/05/24 09:45 97.3 66 15 117/50 99 Nonrebreathing Mask 10.0 11/05/24 09:32 Mask 10.0 11/05/24 09:32 Mask 11/05/24 07:54 99 Nasal Cannula* 2 28 11/05/24 07:47 98.4 54 18 122/60 99 Nasal Cannula 2.0 11/05/24 07:25 54 16 N/A Room Air 21 LABS: Hematology Labs: Test 11/05/24 06:04 Range/Units White Blood Count 6.2 4.8-10.8 K/uL Red Blood Count 4.39 4.00-5.50 MIL/uL Hemoglobin 12.0 12.0-16.0 g/dL Hematocrit 38.1 36-48 % Mean Corpuscular Volume 86.8 79-99 fL Mean Corpuscular Hemoglobin 27.3 27.0-33.0 pg Mean Corpuscular Hemoglobin Concent 31.5 L 32.0-36.0 g/dL Red Cell Distribution Width 15.3 11.0-15.5 % Platelet Count 191 130-400 K/uL Mean Platelet Volume 9.0 7.5-10.5 fL Immature Granulocyte % (Auto) 0.5 0-1 % Neutrophils (%) (Auto) 55.5 40.0-77.0 % Lymphocytes (%) (Auto) 28.7 21.0-51.0 % Monocytes (%) (Auto) 7.4 3.0-13.0 % Eosinophils (%) (Auto) 7.6 0.0-8.0 % Basophils (%) (Auto) 0.3 0.0-5.0 % Neutrophils # (Auto) 3.5 1.8-7.7 K/uL Lymphocytes # (Auto) 1.8 1.0-4.8 K/uL Monocytes # (Auto) 0.5 0.1-1.0 K/uL Eosinophils # (Auto) 0.47 0.00-0.70 K/uL Basophils # (Auto) 0.02 0.00-0.20 K/uL Absolute Immature Granulocyte (auto 0.03 0-1 K/uL Nucleated Red Blood Cells 0.0 0.0-0.19 % Chemistry Labs: Test 11/05/24 06:04 11/04/24 14:16 11/04/24 11:26 Range/Units Sodium Level 137 136-145 mmol/L Potassium Level 3.9 3.5-5.1 mmol/L Chloride Level 107 101-111 mmol/L Carbon Dioxide Level 24 21-32 mmol/L Blood Urea Nitrogen 6 L 7-18 mg/dL Creatinine 0.9 0.5-1.0 mg/dL Glomerular Filtration Rate Calc 65 >90 mL/min Random Glucose 80 70-105 mg/dL Total Calcium 7.9 L 8.5-10.1 mg/dL Lactic Acid Level 1.2 0.8-2.5 mmol/L Total Bilirubin 0.6 0.2-1.0 mg/dL Aspartate Amino Transf (AST/SGOT) 43 H 10-37 U/L Alanine Aminotransferase (ALT/SGPT) 29 12-78 U/L Alkaline Phosphatase 120 50-136 U/L Total Creatine Kinase 106 21-232 U/L Troponin I High Sensitivity 7 4-50 ng/L Total Protein 7.9 6.0-8.3 g/dL Albumin 3.2 L 3.5-5.0 g/dL Lipase 41 16-77 U/L Coagulation Labs: Test 11/04/24 14:16 Range/Units Prothrombin Time 10.9 9.6-11.6 SEC Prothromb Time International Ratio 1.03 0.85-1.15 Activated Partial Thromboplast Time 28.6 26.3-35.5 SEC DIAGNOSTICS / RADIOLOGY RESULTS: [ ] PLAN NEURO: Minimize central acting medications as possible. Maintain fall precautions, adequate lighting during the day PULMONARY: Supplemental 02 as needed. Maintain aspiration precautions at all times CARDIOVASCULAR: Follow hemodynamics. Vital signs per facility protocol GI & NUTRITION: Continue with nutritional support. Continue stool softeners and laxatives as needed. KIDNEYS & ELECTROLYTES: Strict monitoring of intake, output and overall fluid balance. Avoid nephrotoxic medications to the extent possible. Medications to be dosed according to renal function. Monitor electrolytes and replace as needed ENDOCRINE: Maintain blood glucose between 100-180 at all times. Hypoglycemia protocol in place INFECTIOUS DISEASE: Trend temperature, WBC and procalcitonin level Follow cultures, deescalate antibiotics as soon as possible. Panculture if new onset fever ONCOLOGY/HEMATOLOGY/COAGULATION: Monitor for s/s of bleeding Monitor hemoglobin, coagulation studies as needed SKIN: Pressure ulcer prevention per facility protocol Specialty mattress ORTHO/REHAB: Continue PT/OT Prophylaxis: Continue GI and DVT prophylaxis Code Status: Full Resuscitation Disposition: TBD Other: Total patient care time exceeds 35 minutes excluding all procedures. DAVID VALENCIA Nov 05, 2024 14:41
[2024-11-05 15:27] LABS: HEMATOCRIT 37.1 % (36-48)
--- NOTE | 2024-11-05 17:31 | NUR ---
Discharge Planning: Pt. states she lives with her spouse Faustino Hearn. Contact number is . PCP is SEBASTIAN Ruiz, and preferred pharmacy is [facility] in [place]. Pt. states she is independent with all ADL's. No home health, provider services, or DME. `DCP is for home. No d/c needs at present time. Addendum: 11/05/24 at 1734 by JUAN FRANCISCO CRANE RN CM Amended: Links added.
--- NOTE | 2024-11-05 19:40 | PN ---
[facility] PROGRESS NOTE Date of Service: Nov 05, 2024 Time of Service: 19:35 SUBJECTIVE: 11/04 patient seen at bedside, no acute events overnight. Pending EGD today, we will follow up postprocedure. She has had no episodes of melena since admission. Hemoglobin stable at 12.0, remainder of her labs are relatively unremarkable. FOBT negative suggesting dark stools are not associated with melena. Stool studies still pending, will follow up REVIEW OF SYSTEMS 12 point review of systems negative unless noted in HPI PHYSICAL EXAM GENERAL APPEARANCE: The patient is awake, alert, and oriented, in no acute cardiopulmonary distress. NEUROLOGICAL: Cranial nerves II-XII grossly intact. Motor is 5/5 in bilateral upper and lower extremities proximal to distal. No sensory deficits. HEENT: Face is symmetric. Pupils are equal and reactive. Extraocular movements are intact. NECK: Supple. No JVD. No thyromegaly. No submental, submandibular, pre- /postauricular, occipital or supraclavicular lymphadenopathy. CHEST: Normal chest expansion. No Telemetry. LUNGS: crackles present bilaterally CARDIOVASCULAR: Regular. S1 and S2 normal. No appreciable rubs, murmurs or gallops. ABDOMEN: Soft. Patient is tenderness to palpation which is located and right lower quadrant and left lower quadrant. No guarding, no rebound present. : Deferred. No [place]. EXTREMITIES: Non-edematous and not cyanotic. No clubbing. Good capillary refill. SKIN: No skin breakdown. Vital Signs (last 8hr) Date Time Temp Pulse Resp B/P (MAP) Pulse Ox O2 Delivery O2 Flow Rate FiO2 11/05/24 18:47 65 17 N/A Room Air 21 11/05/24 16:00 65 16 118/63 92 Room Air 11/05/24 15:00 69 16 128/59 93 Room Air 11/05/24 14:00 63 16 124/65 93 Room Air 11/05/24 13:00 97.7 68 16 120/64 93 Room Air 11/05/24 12:00 60 16 133/65 95 11/05/24 11:44 74 137/59 94 11/05/24 11:43 63 132/71 94 11/05/24 11:43 59 137/72 92 Room Air LABS: Laboratory: Test 11/05/24 15:20 11/05/24 06:04 11/04/24 14:16 11/04/24 13:42 Range/Units Hemoglobin 11.8 L 12.0-16.0 g/dL Hematocrit 37.1 36-48 % White Blood Count 6.2 4.8-10.8 K/uL Red Blood Count 4.39 4.00-5.50 MIL/uL Mean Corpuscular Volume 86.8 79-99 fL Mean Corpuscular Hemoglobin 27.3 27.0-33.0 pg Mean Corpuscular Hemoglobin Concent 31.5 L 32.0-36.0 g/dL Red Cell Distribution Width 15.3 11.0-15.5 % Platelet Count 191 130-400 K/uL Mean Platelet Volume 9.0 7.5-10.5 fL Immature Granulocyte % (Auto) 0.5 0-1 % Neutrophils (%) (Auto) 55.5 40.0-77.0 % Lymphocytes (%) (Auto) 28.7 21.0-51.0 % Monocytes (%) (Auto) 7.4 3.0-13.0 % Eosinophils (%) (Auto) 7.6 0.0-8.0 % Basophils (%) (Auto) 0.3 0.0-5.0 % Neutrophils # (Auto) 3.5 1.8-7.7 K/uL Lymphocytes # (Auto) 1.8 1.0-4.8 K/uL Monocytes # (Auto) 0.5 0.1-1.0 K/uL Eosinophils # (Auto) 0.47 0.00-0.70 K/uL Basophils # (Auto) 0.02 0.00-0.20 K/uL Absolute Immature Granulocyte (auto 0.03 0-1 K/uL Nucleated Red Blood Cells 0.0 0.0-0.19 % Sodium Level 137 136-145 mmol/L Potassium Level 3.9 3.5-5.1 mmol/L Chloride Level 107 101-111 mmol/L Carbon Dioxide Level 24 21-32 mmol/L Blood Urea Nitrogen 6 L 7-18 mg/dL Creatinine 0.9 0.5-1.0 mg/dL Glomerular Filtration Rate Calc 65 >90 mL/min Random Glucose 80 70-105 mg/dL Total Calcium 7.9 L 8.5-10.1 mg/dL Prothrombin Time 10.9 9.6-11.6 SEC Prothromb Time International Ratio 1.03 0.85-1.15 Activated Partial Thromboplast Time 28.6 26.3-35.5 SEC Lactic Acid Level 1.2 0.8-2.5 mmol/L Stool Occult Blood NEGATIVE NEGATIVE Test 11/04/24 12:51 11/04/24 11:26 Range/Units Urine Color YELLOW YELLOW Urine Appearance CLOUDY H CLEAR Urine pH 6.0 5.0-8.0 Urine Specific [place] 1.016 1.001-1.031 Urine Protein NEGATIVE NEGATIVE mg/dL Urine Glucose (UA) NEGATIVE NEGATIVE mg/dL Urine Ketones NEGATIVE NEGATIVE mg/dL Urine Occult Blood +- (TRACE) H NEGATIVE Urine Nitrate NEGATIVE NEGATIVE Urine Bilirubin NEGATIVE NEGATIVE mg/dL Urine Urobilinogen 0.2 0.2-1.0 mg/dL Urine Leukocyte Esterase 250 H NEGATIVE [place]/uL Urine RBC 2-5 H 0-1 /HPF Urine WBC 2-5 H 0-1 /HPF Urine Squamous Epithelial Cells MANY 0-2 /HPF Urine Bacteria RARE None Seen /HPF Total Bilirubin 0.6 0.2-1.0 mg/dL Aspartate Amino Transf (AST/SGOT) 43 H 10-37 U/L Alanine Aminotransferase (ALT/SGPT) 29 12-78 U/L Alkaline Phosphatase 120 50-136 U/L Total Creatine Kinase 106 21-232 U/L Troponin I High Sensitivity 7 4-50 ng/L Total Protein 7.9 6.0-8.3 g/dL Albumin 3.2 L 3.5-5.0 g/dL Lipase 41 16-77 U/L Current Medications Medications (Trade) Dose Ordered Sig/Qing Route PRN Reason Start Time Stop Time Status Last Admin Dose Admin Acetaminophen (TYLenol 500MG TAB) 500 mg Q6H PRN PO MILD PAIN (1-3) 11/04/24 13:30 12/04/24 13:29 Albuterol Sulfate (Proventil 0.042% 1.25mg/ 3ml) 1.25 [id number] PRN IH WHEEZING/ sob 11/04/24 13:30 12/04/24 13:29 Atorvastatin Calcium (LIPItor 40MG) 40 mg DAILY PO 11/05/24 09:00 12/05/24 08:59 Ceftriaxone Sodium (ROCEphine 1G INJ) 1 gm Q24H IVPB 11/04/24 13:30 11/14/24 13:29 11/05/24 12:48 1 GM Citalopram Hydrobromide (CeleXA 20MG TAB) 20 mg DAILY PO 11/05/24 09:00 12/05/24 08:59 Ondansetron HCl (zoFRAN 4MG INJ) 4 mg Q6H PRN IVP NAUSEA/VOMITING 11/04/24 15:30 12/04/24 15:29 Pantoprazole Sodium (PROTonix 40MG INJ) 40 mg BID IVP 11/05/24 21:00 12/05/24 20:59 Pantoprazole Sodium 80 mg/ Sodium Chloride 100 ml @ 10 mls/hr Q10H IVP 11/04/24 13:30 11/05/24 16:36 DC 11/04/24 22:56 10 MLS/HR Sodium Chloride 1,000 ml @ 75 mls/hr [id number] IV 11/04/24 13:30 12/04/24 13:29 11/05/24 16:39 75 MLS/HR Topiramate (TopaMAX) 100 mg DAILY PO 11/05/24 09:00 12/05/24 08:59 DIAGNOSTICS / RADIOLOGY: [ ] ASSESSMENT: Melena POA Non improving diarrhea POA differential infectious sources inflammatory Pulmonary fibrosis associated shortness of breath Hyperlipidemia Obesity BMI 30.5 UTI rule out PLAN: - patient to be admitted to medical-surgical unit with telemetry -in reference to melena. We will check a fecal occult blood. Check H&H q.6 hours. Patient will be started on Protonix drip. We will request consultation with GI. -in reference to diarrhea. Obtain a stool PCR panel. We will follow up on GI recommendations. -reference to pulmonary fibrosis. The patient will continue on her home medications. We will request pulmonology consultation. Continue with albuterol q.4 RPR -obtain home medication she will be reconciled once available - Further ordered per hospitalization course Disposition: Pending improvement in clinical status TIFFANIE OKEEFE MD Nov 05, 2024 19:39
[2024-11-05] MEDS: PANTOPrazole 40 MG/VIAL IVP SCH (20:19)
--- NOTE | 2024-11-06 00:22 | NUR ---
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 ALSO MADE AWARE STOOLS ARE NOT WATERY PER GATE PERSON STOOL IS SOFT AND YAHAIRA LIKE. N/O LOMOTIL PO X1 DOSE.
[2024-11-06] MEDS: DIPHENOXYLATE HCL/ATROPINE 2.5/0.025 MG TAB PO ONE (00:33)
[2024-11-06 03:34] VITALS: BP 119/66; PULSE 61; RESP 16; TEMP 98
[2024-11-06 05:34] LABS: BASOPHILS # (AUTO) 0.02 K/uL (0.00-0.20); BASOPHILS % (AUTO) 0.3 % (0.0-5.0); HEMATOCRIT 37.8 % (36-48); IMMATURE GRANULOCYTE ABSOLUTE 0.01 K/uL (0-1); LYMPHOCYTES % (AUTO) 35.1 % (21.0-51.0); MEAN CORPUSCULAR HEMOGLOBIN 26.9 pg (27.0-33.0); MEAN CORPUSCULAR HGB CONC 32.3 g/dL (32.0-36.0); MEAN CORPUSCULAR VOLUME 83.4 fL (79-99); MONOCYTES # (AUTO) 0.5 K/uL (0.1-1.0); MONOCYTES % (AUTO) 8.2 % (3.0-13.0); NEUTROPHILS # (AUTO) 2.8 K/uL (1.8-7.7); NEUTROPHILS % (AUTO) 49.2 % (40.0-77.0); PLATELET COUNT (AUTO) 191 K/uL (130-400); RED BLOOD CELL COUNT(AUTO) 4.53 MIL/uL (4.00-5.50); RED CELL DISTRIBUTION WIDTH 15.1 % (11.0-15.5); WHITE BLOOD COUNT (AUTO) 5.7 K/uL (4.8-10.8)
[2024-11-06 05:51] LABS: PHOSPHORUS 2.6 mg/dL (2.5-4.9); POTASSIUM 3.7 mmol/L (3.5-5.1)
[2024-11-06 07:38] VITALS: PULSE 56; RESP 16; O2SAT 94
[2024-11-06 07:49] VITALS: BP 121/54; PULSE 57; RESP 16; TEMP 98.2
[2024-11-06 08:15] VITALS: O2SAT 93
[2024-11-06] MEDS: PANTOPrazole 40 MG TAB DR PO SCH (08:23)
[2024-11-06] MEDS ORDERED: PANT40TA54 PO (11:15)
[2024-11-06 12:09] VITALS: PULSE 64; PULSE 89; RESP 18; RESP 28; O2SAT 89; O2SAT 96
--- NOTE | 2024-11-06 13:20 | NUR ---
DC NOTE DC INSTRUCTIONS AND FOLLOW UP APPOINTMENT GIVEN TO PT AND DAUGHTERS, E-SCRIPT SENT TO PT'S PHARMACY, VERBALIZED UNDERSTANDING. PIV AND TELE MONITOR REMOVED, CATHETER INTACT AND PLACED. PT IS WHEELED DOWNSTAIRS INTO VIA PRIVATE CAR/. NO FURTHER COMMENTS OR CONCERNS AT THIS TIME.
--- NOTE | 2024-11-06 15:06 | PN ---
[facility] PROGRESS NOTE Date Patient Seen: Nov 06, 2024 Time of Visit: 15:06 Supervising Physician: Dr. Joseph Don Primary Care Physician: Dr. Kellie Anand Outpatient Specialists: [ ] Inpatient Consults: PROBLEM LIST: Melena POA Non improving diarrhea POA differential infectious sources inflammatory Pulmonary fibrosis associated shortness of breath Hyperlipidemia Obesity BMI 30.5 UTI rule out INTERVAL HISTORY: Patient was evaluated once again at bedside, remains on room air at this time. Patient was pending discharge by primary, she is status post EGD at this time. Patient has had no pulmonary events during this admission, advised to follow up with the outpatient pulmonary clinic for home O2 evaluation if needed as patient does experience episodes of shortness of breath at home. Patient expressed u nderstanding with the plan, dispo per primary. REVIEW OF SYSTEMS: 12 point ROS reviewed with patient. Pertinent positives mentioned above. Otherwise negative. PHYSICAL EXAM: GENERAL: alert, weak, awake oriented x 3 HEENT: EOMI, Sclera non icteric, moist mucosa NECK: Supple, no JVD, trachea midline LUNGS: Clear breath sounds bilaterally. No wheezes HEART: Regular rate and rhythm. Normal S1 and S2, without murmurs ABD: Abdomen soft, nontender. Bowel sounds present EXT: No clubbing cyanosis or edema NEURO: Alert and oriented to person, follows commands Vital Signs (last 8hr) Date Time Temp Pulse Resp B/P (MAP) Pulse Ox O2 Delivery O2 Flow Rate FiO2 11/06/24 12:09 64 18 21 89 28 21 11/06/24 08:15 93 Room Air* 0 21 11/06/24 07:49 98.2 57 16 121/54 93 Room Air 11/06/24 07:38 56 16 N/A Room Air 21 LABS: Hematology Labs: Test 11/06/24 05:24 Range/Units White Blood Count 5.7 4.8-10.8 K/uL Red Blood Count 4.53 4.00-5.50 MIL/uL Hemoglobin 12.2 12.0-16.0 g/dL Hematocrit 37.8 36-48 % Mean Corpuscular Volume 83.4 79-99 fL Mean Corpuscular Hemoglobin 26.9 L 27.0-33.0 pg Mean Corpuscular Hemoglobin Concent 32.3 32.0-36.0 g/dL Red Cell Distribution Width 15.1 11.0-15.5 % Platelet Count 191 130-400 K/uL Mean Platelet Volume 9.1 7.5-10.5 fL Immature Granulocyte % (Auto) 0.2 0-1 % Neutrophils (%) (Auto) 49.2 40.0-77.0 % Lymphocytes (%) (Auto) 35.1 21.0-51.0 % Monocytes (%) (Auto) 8.2 3.0-13.0 % Eosinophils (%) (Auto) 7.0 0.0-8.0 % Basophils (%) (Auto) 0.3 0.0-5.0 % Neutrophils # (Auto) 2.8 1.8-7.7 K/uL Lymphocytes # (Auto) 2.0 1.0-4.8 K/uL Monocytes # (Auto) 0.5 0.1-1.0 K/uL Eosinophils # (Auto) 0.40 0.00-0.70 K/uL Basophils # (Auto) 0.02 0.00-0.20 K/uL Absolute Immature Granulocyte (auto 0.01 0-1 K/uL Nucleated Red Blood Cells 0.0 0.0-0.19 % Chemistry Labs: Test 11/06/24 05:24 Range/Units Sodium Level 136 136-145 mmol/L Potassium Level 3.7 3.5-5.1 mmol/L Chloride Level 105 101-111 mmol/L Carbon Dioxide Level 22 21-32 mmol/L Blood Urea Nitrogen 6 L 7-18 mg/dL Creatinine 1.0 0.5-1.0 mg/dL Glomerular Filtration Rate Calc 57 >90 mL/min Random Glucose 90 70-105 mg/dL Total Calcium 7.8 L 8.5-10.1 mg/dL Phosphorus Level 2.6 2.5-4.9 mg/dL Magnesium Level 2.00 1.80-2.40 mg/dL DIAGNOSTICS / RADIOLOGY RESULTS: [ ] PLAN NEURO: Minimize central acting medications as possible. Maintain fall precautions, adequate lighting during the day PULMONARY: Supplemental 02 as needed. Maintain aspiration precautions at all times CARDIOVASCULAR: Follow hemodynamics. Vital signs per facility protocol GI & NUTRITION: Continue with nutritional support. Continue stool softeners and laxatives as needed. KIDNEYS & ELECTROLYTES: Strict monitoring of intake, output and overall fluid balance. Avoid nephrotoxic medications to the extent possible. Medications to be dosed according to renal function. Monitor electrolytes and replace as needed ENDOCRINE: Maintain blood glucose between 100-180 at all times. Hypoglycemia protocol in place INFECTIOUS DISEASE: Trend temperature, WBC and procalcitonin level Follow cultures, deescalate antibiotics as soon as possible. Panculture if new onset fever ONCOLOGY/HEMATOLOGY/COAGULATION: Monitor for s/s of bleeding Monitor hemoglobin, coagulation studies as needed SKIN: Pressure ulcer prevention per facility protocol Specialty mattress ORTHO/REHAB: Continue PT/OT Prophylaxis: Continue GI and DVT prophylaxis Code Status: Full Resuscitation Disposition: TBD Other: Total patient care time exceeds 35 minutes excluding all procedures. DAVID VALENCIA Nov 06, 2024 15:06
--- NOTE | 2024-11-06 19:14 | DS ---
Discharge Summary Hospital Course Summary: 79-year-old female with past medical history of hyperlipidemia, pulmonary fibrosis who presents to the hospital secondary to diarrhea and melena. The patient stated for the past one month she has been having loose stools at home. She has been having around 3-4 episodes. She was also noted black stools which started the day before. She denies any nausea, vomiting. Also complains of generalized abdominal pain. She has a history of pulmonary fibrosis and is being followed outpatient by Dr. Carolina. The he had any fever, chills, chest pain, dysuria. She does get short of breath at rest and with exertion. She denied any hematochezia, hematemesis. Denied any sick contacts, recent travel. Secondary to non improving symptoms. Patient thereafter came to the hospital for further evaluation. Denies being on iron or Pepto-Bismol at home. She was admitted and GI was consulted. An FOBT was ordered and negative. GI recommended EGD, she was taken for the procedure where changes consistent with barretts esophagus and gastritis were noted. Biopsies were taken. She tolerated the procedure well. Throughout the hospitalization she had no episodes of bloody stool and her Hgb was stable in the 12 range. By hospital day 2 she was stable and cleared for discharge. 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 Patient was not given contrast through intravenous route. Oral contrast was not given. FINDINGS: No pleural effusion is seen bilaterally. There are interstitial fibrosis with bronchiectasis. Degenerative changes of the thoracolumbar spine are present. The heart is borderline enlarged. Gallbladder is distended. The liver, spleen, adrenal glands and pancreas are unremarkable. There is no evidence of hydronephrosis bilaterally. No evidence of renal stone is seen. Fecal material is seen in the colon. There is diverticulosis. There are normal size retroperitoneal and mesenteric lymph nodes. No ascites is seen. No CT evidence of acute appendicitis is seen. Uterus is not seen. Pelvic sidewalls are symmetric bilaterally. Bladder is poorly distended. IMPRESSION: 1. Diverticulosis. Fecal material is seen in the colon. Mild bilateral lower lung pulmonary infiltrates. There are interstitial fibrosis with bronchiectasis. CHEST 1VW HISTORY: Ovary fibrosis COMPARISON: None FINDINGS: A frontal projection of the chest was obtained. Mild bilateral pulmonary infiltrates are seen may be related to mild pulmonary vascular congestion with possible superimposed pneumonitis. The heart is borderline enlarged. Degenerative changes are seen. No evidence of aortic calcification is seen. IMPRESSION: 1. Mild bilateral pulmonary infiltrates are seen may be related to mild pulmonary vascular congestion with possible superimposed pneumonitis. Assessment/Plan: Melena, ruled out POA Non improving diarrhea POA differential infectious sources inflammatory, resolved Pulmonary fibrosis associated shortness of breath Hyperlipidemia Obesity BMI 30.5 UTI rule out Discharge Instructions: Follow up with PCP in 3-7 days Follow up with resident associate in 1-2 weeks for pathology results Home Medications: Active Scripts Pantoprazole Sodium (Pantoprazole Sodium) 40 Mg Tablet.dr, 40 MG PO BID, #60 TAB Prov:TIFFANIE OKEEFE MD 11/06/24 Reported Medications Tamsulosin HCl (Flomax) 0.4 Mg Cap.er.24h, 1 CAP PO DAILY for 30 Days, #30 CAP 0 Refills 11/05/24 Amlodipine Besylate (Amlodipine Besylate) 5 Mg Tablet, 5 MG PO DAILY, TAB 11/05/24 Aspirin (ASPIRIN 81MG CHEW TAB) 81 Mg Tab.chew, 1 TAB PO DAILY for 30 Days, #30 TAB 0 Refills 11/05/24 Levothyroxine Sodium (Levothyroxine Sodium) 88 Mcg Tablet, 1 TAB PO DAILY for 30 Days, #30 TAB 0 Refills 11/05/24 Trazodone HCl (Trazodone HCl) 50 Mg Tablet, 50 MG PO DAILY, TAB 11/05/24 Docusate Sodium (Docusate Sodium) 100 Mg Tablet, 1 TAB PO DAILY for 30 Days, #60 TAB 0 Refills 11/05/24 Lorazepam (Ativan) 1 Mg Tablet, 1 TAB PO Q4HPRN PRN for anxiety for 30 Days, #60 TAB 0 Refills 11/05/24 Albuterol Sulfate (Albuterol Sulfate) 2.5 Mg/0.5 Ml Vial.neb, 1 VIAL NEB Q6H for shortness of breath for 30 Days, #60 ML 0 Refills 11/05/24 Atorvastatin Calcium (Atorvastatin Calcium) 40 Mg Tablet, 1 TAB PO DAILY for 30 Days, #30 TAB 0 Refills 11/04/24 Discontinued Reported Medications Omeprazole (Omeprazole) 20 Mg Capsule.dr, 1 CAP PO DAILY for 30 Days, #30 CAP 0 Refills 11/04/24 Ciprofloxacin HCl (Cipro) 500 Mg Tablet, 1 TAB PO BID for 10 Days, #20 TAB 0 Refills 11/05/24 Citalopram Hydrobromide (Citalopram HBr) 20 Mg Tablet, 1 TAB PO DAILY for 30 Days, #30 TAB 0 Refills 11/04/24 Topiramate (Topiramate) 100 Mg Tablet, 100 MG PO DAILY, TAB 11/04/24 Alendronate Sodium (Alendronate Sodium) 70 Mg Tablet, 70 MG PO WEEKLY(FRI), TAB 02/12/16 Omeprazole (Omeprazole) 20 Mg Tablet.dr, 20 MG PO DAILY, TAB 02/12/16 Topiramate (Topiramate) 25 Mg Tablet, 25 MG PO DAILY, TAB 02/12/16 Citalopram Hydrobromide (Citalopram HBr) 20 Mg/10 Ml Solution, 20 MG PO DAILY, ML 02/12/16 Simvastatin (Simvastatin) 20 Mg Tablet, 20 MG PO HS, TAB 02/12/16 Clopidogrel Bisulfate (Plavix) 75 Mg Tablet, 75 MG PO DAILY, TAB 02/12/16 Aspirin (ASPIRIN 81 MG ECTAB) 81 Mg Ectab, 81 MG PO DAILY, TAB.EC 02/12/16 Discontinued Scripts Doxycycline Hyclate (Doxycycline Hyclate) 100 Mg Capsule, 100 MG PO BID, #10 CAP 0 Refills Prov:Shirley GALARZA II, MD 02/12/16 New Medications: Pantoprazole Sodium (Pantoprazole Sodium) 40 Mg Tablet. 40 MG PO BID, #60 TAB Continued Medications: Albuterol Sulfate (Albuterol Sulfate) 2.5 Mg/0.5 Ml Vial.neb 1 VIAL NEB Q6H for shortness of breath for 30 Days, #60 ML 0 Refills Amlodipine Besylate (Amlodipine Besylate) 5 Mg Tablet 5 MG PO DAILY, TAB Aspirin (Aspirin 81MG Chew Tab) 81 Mg Tab.chew 1 TAB PO DAILY for 30 Days, #30 TAB 0 Refills Atorvastatin Calcium (Atorvastatin Calcium) 40 Mg Tablet 1 TAB PO DAILY for 30 Days, #30 TAB 0 Refills Docusate Sodium (Docusate Sodium) 100 Mg Tablet 1 TAB PO DAILY for 30 Days, #60 TAB 0 Refills Levothyroxine Sodium (Levothyroxine Sodium) 88 Mcg Tablet 1 TAB PO DAILY for 30 Days, #30 TAB 0 Refills Lorazepam (Ativan) 1 Mg Tablet 1 TAB PO Q4HPRN PRN for anxiety for 30 Days, #60 TAB 0 Refills Tamsulosin HCl (Flomax) 0.4 Mg Cap.er.24h 1 CAP PO DAILY for 30 Days, #30 CAP 0 Refills Trazodone HCl (Trazodone HCl) 50 Mg Tablet 50 MG PO DAILY, TAB Discontinued Medications: Omeprazole (Omeprazole) 20 Mg Capsule.dr 1 CAP PO DAILY for 30 Days, #30 CAP 0 Refills Time spent arranging discharge: 31-60 minutes TIFFANIE OKEEFE MD Nov 06, 2024 19:14
== END 2024-11-06 13:20 | disposition home or self-care (01) ==
LOC: EDH 10:36 → INTOOBSV 13:13 → EDHIP 13:13 → 3CH 21:10
PROVIDERS: ADMIT Internal Medicine; ATTEND Internal Medicine
DX: K92.1 Melena (principal); E66.9 Obesity, unspecified; I10 Essential (primary) hypertension; K92.2 Gastrointestinal hemorrhage, unspecified; E78.00 Pure hypercholesterolemia, unspecified; R11.2 Nausea with vomiting, unspecified; R19.7 Diarrhea, unspecified; Z98.890 Other specified postprocedural states; Z79.899 Other long term (current) drug therapy; Z68.30 Body mass index [BMI] 30.0-30.9, adult
CPT/HCPCS: 96376 ×2; 96365; 96375 ×2; 99285; 82550; 84484; 80053; 83690; 85025 ×3; 85610; 85730; 85014 ×4; 85018 ×4; 86850; 86900; 86901; 87086; 83605; 82270; 81001; 36415 ×3; 71045; 74176; 93005; 94010; 94664; 96361 ×4; 96366; 80048 ×2; 88305; 88312; 43239; 83735; 84100; 94760 ×2; J7120; J0696 ×2; J2405; J2470 ×3; G0378 ×21; J2003; J2704; A4620; A4215; A4223; A4222; J7030; A4606; 96374; J3490